=== PATIENT | male | born 1950 | race Caucasian/White ===

== ENCOUNTER 2017-11-15 12:18 | Emergency (ER) | payer OTHER ==
[~2017-11-15] VITALS: Ht 180.3 cm; Wt 80.1 kg
[~2017-11-15 12:18] MED LIST: NOHOMEMEDS
[2017-11-15 14:26] VITALS: BP 164/84
== END 2017-11-15 14:27 | disposition home or self-care (01) ==
LOC: EME 12:18 → AMB 12:18 → EME 14:27
DX: S83.91XA Sprain of unspecified site of right knee, initial encounter (principal); W01.0XXA Fall on same level from slipping, tripping and stumbling without subsequent striking against object, initial encounter; Y93.01 Activity, walking, marching and hiking; Z72.0 Tobacco use
CPT/HCPCS: 73564; 99281; 99284